=== PATIENT | female | born 1955 | race Two or more races ===

== ENCOUNTER 2017-11-14 20:37 | Emergency (ER) | payer OTHER ==
[~2017-11-14] VITALS: Ht 154.9 cm; Wt 61.2 kg
[~2017-11-14 20:37] MED LIST: ACTONEL35 MG
[2017-11-14] MEDS ORDERED: VENTOLIN HFA18 GM (20:49)
[2017-11-14] MEDS ORDERED: PREDNISONE5 MG/1 ML (20:50)
[2017-11-14] MEDS ORDERED: ZITHROMAX200 MG (20:51)
== END 2017-11-14 22:46 | disposition home or self-care (01) ==
LOC: ER 20:37
DX: J98.01 Acute bronchospasm (principal)

== ENCOUNTER 2017-11-19 13:03 | Outpatient (CLI) | payer OTHER ==
[~2017-11-19 13:03] MED LIST changes: +PREDNISONE5 MG/1 ML; +VENTOLIN HFA18 GM; +ZITHROMAX200 MG
== END 2017-11-19 14:13 | disposition home or self-care (01) ==
LOC: NUCLEAR 13:03
DX: R06.02 Shortness of breath (principal); R94.31 Abnormal electrocardiogram [ECG] [EKG]

== ENCOUNTER 2017-11-22 08:20 | Outpatient (CLI) | payer OTHER | END 2017-11-22 09:55 | disposition home or self-care (01) | LOC: LAB 08:20 | DX: R06.09 Other forms of dyspnea (principal); Z51.81 Encounter for therapeutic drug level monitoring ==

== ENCOUNTER → 2017-11-22 | Outpatient (CLI) | payer OTHER | END | disposition home or self-care (01) | LOC: TOM 09:15 | DX: R06.09 Other forms of dyspnea (principal) ==

== ENCOUNTER 2018-05-09 08:50 | Outpatient (CLI) | payer OTHER | END 2018-05-09 17:00 | disposition home or self-care (01) | LOC: MRI 08:50 | DX: M65.811 Other synovitis and tenosynovitis, right shoulder (principal); M75.101 Unspecified rotator cuff tear or rupture of right shoulder, not specified as traumatic | CPT/HCPCS: 73221 ==

== ENCOUNTER 2018-05-26 10:45 | Outpatient (CLI) | payer OTHER | END 2018-05-26 10:54 | disposition home or self-care (01) | LOC: RAD 10:45 | DX: M75.111 Incomplete rotator cuff tear or rupture of right shoulder, not specified as traumatic (principal) ==

== ENCOUNTER 2019-05-21 07:12 | Emergency (ER) | payer OTHER ==
[~2019-05-21] VITALS: Ht 154.9 cm; Wt 63.5 kg
== END 2019-05-21 11:07 | disposition home or self-care (01) ==
LOC: ER 07:12
DX: N20.0 Calculus of kidney (principal); N39.0 Urinary tract infection, site not specified

== ENCOUNTER 2019-05-22 08:21 | Inpatient (IN) | payer OTHER ==
[~2019-05-22] VITALS: Ht 154.9 cm; Wt 63.5 kg
== END 2019-05-31 13:25 | disposition home health service (06) | DRG 699 ==
LOC: ER 08:21 → SURG-SUITE 12:38 → MEDI 05-23 18:15
PROVIDERS: ADMIT Specialist
PROC: B03 Imaging, Central Nervous System, Magnetic Resonance Imaging (MRI) (ICD-10-PCS; principal; 2019-05-22)
PROC: B030Y0Z Magnetic Resonance Imaging (MRI) of Brain using Other Contrast, Unenhanced and Enhanced (ICD-10-PCS; 2019-05-22)
PROC: 0T9B70Z Drainage of Bladder with Drainage Device, Via Natural or Artificial Opening (ICD-10-PCS; 2019-05-22)
PROC: BW4GZZZ Ultrasonography of Pelvic Region (ICD-10-PCS; 2019-05-30)
DX: N31.8 Other neuromuscular dysfunction of bladder (principal); G37.3 Acute transverse myelitis in demyelinating disease of central nervous system; M51.05 Intervertebral disc disorders with myelopathy, thoracolumbar region; I67.82 Cerebral ischemia; N39.0 Urinary tract infection, site not specified; N39.41 Urge incontinence; J98.01 Acute bronchospasm; R27.8 Other lack of coordination; B96.0 Mycoplasma pneumoniae [M. pneumoniae] as the cause of diseases classified elsewhere; A60.04 Herpesviral vulvovaginitis; K59.09 Other constipation
CPT/HCPCS: 70551; 72157; 72158

== ENCOUNTER → 2020-04-10 | Outpatient (CLI) | payer OTHER | END | disposition home or self-care (01) | LOC: PPH VACUNA 02:16 | PROVIDERS: ATTEND Emergency Medicine Pediatric Emergency Medicine | DX: Z23 Encounter for immunization (principal) ==

== ENCOUNTER 2020-12-25 09:00 | Outpatient (CLI) | payer OTHER ==
[2021-01-14] MEDS ORDERED: TAMS0.4C PO (09:35)
[2021-01-14] MEDS ORDERED: PROBIOTIC1 EAC4 PO (09:35)
== END 2020-12-25 09:30 | disposition home or self-care (01) ==
LOC: PPH VACUNA 09:00
PROVIDERS: ATTEND Emergency Medicine Pediatric Emergency Medicine
DX: Z23 Encounter for immunization (principal)

== ENCOUNTER 2021-01-10 09:00 | Outpatient (CLI) | payer OTHER ==
[2021-01-14] MEDS ORDERED: PROBIOTIC1 EAC4 PO (09:35)
[2021-01-14] MEDS ORDERED: TAMS0.4C PO (09:35)
== END 2021-01-10 09:13 | disposition home or self-care (01) ==
LOC: TOM 09:00
PROVIDERS: ATTEND Internal Medicine Cardiovascular Disease
DX: K57.92 Diverticulitis of intestine, part unspecified, without perforation or abscess without bleeding (principal); R10.2 Pelvic and perineal pain

== ENCOUNTER → 2021-01-15 | Day surgery (SDC) | payer OTHER ==
[~2021-01-15] MED LIST changes: +PROBIOTIC1 EAC4 PO; +TAMS0.4C PO
== END | disposition home or self-care (01) ==
LOC: CIR.AMB 08:56
PROVIDERS: ATTEND Urology
DX: N20.1 Calculus of ureter (principal); Z20.822 Contact with and (suspected) exposure to COVID-19

== ENCOUNTER 2021-02-18 09:31 | Outpatient (CLI) | payer OTHER | END 2021-02-18 13:40 | disposition home or self-care (01) | LOC: SONOGRAMA 09:31 | PROVIDERS: ATTEND Urology | DX: N30.00 Acute cystitis without hematuria (principal); N20.1 Calculus of ureter ==

== ENCOUNTER 2021-09-08 11:12 | Outpatient (CLI) | payer OTHER | END 2021-09-08 11:22 | disposition home or self-care (01) | LOC: PPH VACUNA 11:12 | PROVIDERS: ATTEND Emergency Medicine Pediatric Emergency Medicine | DX: Z23 Encounter for immunization (principal) ==

== ENCOUNTER 2022-02-13 10:48 | Outpatient (CLI) | payer OTHER | END 2022-02-13 11:05 | disposition home or self-care (01) | LOC: PPH VACUNA 10:48 | PROVIDERS: ATTEND Emergency Medicine Pediatric Emergency Medicine | DX: Z23 Encounter for immunization (principal) ==

== ENCOUNTER 2023-07-08 08:55 | Emergency (ER) | payer OTHER ==
[~2023-07-08] VITALS: Ht 152.4 cm; Wt 62.1 kg
[2023-07-08] MEDS ORDERED: LEVALBUTEROL HCL 0.63 MG/3 ML SOLUTION IH SCH (09:00)
[2023-07-08] MEDS ORDERED: BUDESONIDE 0.25 MG/2 ML AMPUL.NEB IH ONE (09:15)
[2023-07-08] MEDS ORDERED: 0.9 % SODIUM CHLORIDE 1,000 ML IV SCH (09:15)
[2023-07-08] MEDS ORDERED: METHYLPREDNISOLONE SOD SUCC 125 MG VIAL IV ONE (09:15)
[2023-07-08 09:33] LABS: ABG PH 7.543 (7.35-7.45)
[2023-07-08 09:34] LABS: ABG PO2 97.2 mmHg (80-100); ABG pCO2 24.6 mmHg (35-45); BASE EXCESS 0 mmol/l; BICARBONATE 20.7 mmol/l (23-25); SaO2 98.4 %; Tco2 21.4 mmol/l; allen test SATISFACTORY; o2 21 %; puncture site RADIAL RIGHT
[2023-07-08 10:07] LABS: HEMATOCRIT 40.7 % (36.0-45.00); MEAN CELL VOLUME 87.9 fL (80.00-100.00); MEAN CORPUSCULAR HEMOGLOBIN 30.2 pg (27.00-32.0); MEAN CORPUSCULAR HGB CONC 34.4 g/dl (32.0-36.0); PLATELET COUNT 243 K/uL (150-450); RED BLOOD COUNT 4.63 M/uL (4.00-6.00); RED CELL DISTRIBUTION WIDTH 13.7 % (11.5-14.5)
[2023-07-08 10:25] LABS: ALBUMIN 3.6 gm/dL (3.4-5.0); BILIRUBIN TOTAL 0.54 mg/dL (0.3-1.2); CALCIUM 9.4 mg/dL (8.5-10.1); CREATININE SERUM 0.78 mg/dL (0.55-1.02); GFR 73.01; GLOBULINA 4.5 G/DL (2.4-3.5); POTASSIUM 4.34 mEq/L (3.5-5.1); TOTAL PROTEIN 8.1 gm/dL (6.4-8.2)
[2023-07-08] MEDS ORDERED: levoFLOXacin IN DEXTROSE 5 % 500MG/100ML PIGGYBAG IV ONE (15:45)
== END 2023-07-08 18:25 | disposition home or self-care (01) ==
LOC: ER 08:55
PROVIDERS: Emergency Medicine
DX: J45.909 Unspecified asthma, uncomplicated (principal); Z88.8 Allergy status to other drugs, medicaments and biological substances; J22 Unspecified acute lower respiratory infection; Z20.822 Contact with and (suspected) exposure to COVID-19; J18.9 Pneumonia, unspecified organism

== ENCOUNTER 2023-09-24 09:17 | Outpatient (CLI) | payer OTHER | END 2023-09-24 09:18 | disposition home or self-care (01) | LOC: NUCLEAR 09:17 | PROVIDERS: ATTEND Internal Medicine | DX: G45.9 Transient cerebral ischemic attack, unspecified (principal); I10 Essential (primary) hypertension ==

== ENCOUNTER 2023-09-24 10:55 | Outpatient (CLI) | payer OTHER | END 2023-09-24 11:02 | disposition home or self-care (01) | LOC: RAD 10:55 | PROVIDERS: ATTEND Internal Medicine Pulmonary Disease | DX: J45.41 Moderate persistent asthma with (acute) exacerbation (principal) ==

== ENCOUNTER 2023-09-27 09:04 | Inpatient (IN) | payer OTHER ==
[~2023-09-27] VITALS: Ht 162.6 cm; Wt 68.0 kg
--- NOTE | 2023-09-27 09:07 | NUR ---
PACIENTE TRAIDO EN SILLA DE [place] POR DEBILIDAD EN EXTREMIDADES INFERIORES DESDE HOY
[2023-09-27] MEDS ORDERED: METHYLPREDNISOLONE SOD SUCC 500 MG VIAL IV ONE (10:00)
[2023-09-27 10:37] LABS: HEMATOCRIT 37.5 % (36.0-45.00); MEAN CELL VOLUME 89.2 fL (80.00-100.00); MEAN CORPUSCULAR HEMOGLOBIN 30.9 pg (27.00-32.0); MEAN CORPUSCULAR HGB CONC 34.7 g/dl (32.0-36.0); PLATELET COUNT 248 K/uL (150-450); RED CELL DISTRIBUTION WIDTH 14.5 % (11.5-14.5)
[2023-09-27 10:51] LABS: ABG PH 7.621 (7.35-7.45); ABG PO2 130.8 mmHg (80-100); ABG pCO2 20.6 mmHg (35-45); BASE EXCESS 1.9 mmol/l; BICARBONATE 20.8 mmol/l (23-25); SaO2 99.5 %; Tco2 21.4 mmol/l
[2023-09-27 10:52] LABS: allen test SATISFACTORY; o2 21 %; puncture site RADIAL LEFT
[2023-09-27 10:58] LABS: ALBUMIN 3.5 gm/dL (3.4-5.0); BILIRUBIN TOTAL 0.61 mg/dL (0.3-1.2); CALCIUM 9.1 mg/dL (8.5-10.1); CREATININE SERUM 0.86 mg/dL (0.55-1.02); GFR 65.23; GLOBULINA 4.1 G/DL (2.4-3.5); POTASSIUM 3.12 mEq/L (3.5-5.1); TOTAL PROTEIN 7.6 gm/dL (6.4-8.2)
[2023-09-27 11:20] LABS: T4 TOTAL 8.37 UG/DL (4.8-13.9); TSH 4.25 uIU/mL (0.358-3.74)
[2023-09-27] MEDS ORDERED: DEXTROSE 50 % IN WATER 0.5 G/ML VIAL IV PRN (12:45)
[2023-09-27] MEDS ORDERED: INSULIN LISPRO 1,000 UNIT/10 ML UNITS SUBCUTANEO PRN (12:45)
[2023-09-27] MEDS ORDERED: POTASSIUM CHLORIDE IN WATER 100 ML IV STA (12:46)
[2023-09-27 13:15] LABS: INR 1.02; PARTIAL THROMBOPLASTIN TIME 27.7 SECONDS (22.0-34.0); PROTHROMBIN TIME 10.7 SECONDS (9.0-11.5)
[2023-09-27] MEDS ORDERED: PROVENTIL HFA6.7 GM (14:05)
[2023-09-27 20:12] LABS: T4 TOTAL 7.53 UG/DL (4.8-13.9)
[2023-09-27 20:20] LABS: C-REACTIVE PROTEIN 0.33 MG/DL (0.00-0.29); TSH 0.353 uIU/mL (0.358-3.74)
[2023-09-27] MEDS ORDERED: FAMOTIDINE/PF 20 MG in 0.9 % SODIUM CHLORIDE 100 ML IV SCH (21:00)
[2023-09-27 22:33] LABS: GLU CSF 103 mg/dl (41-70); PROT CSF 35 mg/dl (15-45)
[2023-09-27 22:51] LABS: CSF APPEARANCE CRYSTAL CLEAR; CSF COLOR COLOR LESS; CSF RBC 45 /mm3 (0-5.0); CSF WBC 3 /mm3 (0-5)
[2023-09-28] MEDS ORDERED: METHYLPREDNISOLONE SOD SUCC 500 MG VIAL IV SCH (09:00)
[2023-09-28 11:53] LABS: CALCIUM 9.4 mg/dL (8.5-10.1); CREATININE SERUM 0.62 mg/dL (0.55-1.02); GFR 95.16; POTASSIUM 4.28 mEq/L (3.5-5.1)
[2023-09-29] MEDS ORDERED: BARIUM SULFATE 450 ML ORAL.SUSP PO NR (07:45)
[2023-09-30] MEDS ORDERED: METHYLPREDNISOLONE SOD SUCC 500 MG VIAL IV STA (14:55)
[2023-10-01 08:08] LABS: hsv I pcr NEGATIVE
[2023-10-01] MEDS ORDERED: METHYLPREDNISOLONE SOD SUCC 500 MG VIAL IV SCH (13:00)
[2023-10-01 13:07] LABS: FOLIC ACID 14.19 ng/ml (4.78-20)
[2023-10-03 09:05] LABS: HOMOCYSTEINE 8.8 umol/L (0.0-17.2)
[2023-10-04 15:07] LABS: INTRINSIC FACTOR BLOCKING AB 1.1 AU/mL (0.0-1.1); PARIETAL CELL ANTIBODIES 3.5 Units (0.0-20.0)
[2023-10-05 13:07] LABS: ANTI CARDIO IGG < 9 GPL U/mL (0-14); ANTI CARDIO IGM < 9 MPL U/mL (0-12)
== END 2023-10-01 15:26 | disposition home or self-care (01) | DRG 58 ==
LOC: ER 09:04 → MEDI 10:10 → MEDJ 09-28 16:11
PROVIDERS: Anesthesiology Pain Medicine; Emergency Medicine; Psychiatry & Neurology Clinical Neurophysiology; ADMIT Specialist; ATTEND Specialist
PROC: BW38YZZ Magnetic Resonance Imaging (MRI) of Head using Other Contrast (ICD-10-PCS; 2023-09-27)
PROC: BW28YZZ Computerized Tomography (CT Scan) of Head using Other Contrast (ICD-10-PCS; 2023-09-27)
PROC: BR30YZZ Magnetic Resonance Imaging (MRI) of Cervical Spine using Other Contrast (ICD-10-PCS; 2023-09-27)
PROC: BR39ZZZ Magnetic Resonance Imaging (MRI) of Lumbar Spine (ICD-10-PCS; 2023-09-27)
PROC: BR30YZZ Magnetic Resonance Imaging (MRI) of Cervical Spine using Other Contrast (ICD-10-PCS; 2023-09-27)
PROC: 009Y3ZZ Drainage of Lumbar Spinal Cord, Percutaneous Approach (ICD-10-PCS; principal; 2023-09-27 20:30)
PROC: BW21YZZ Computerized Tomography (CT Scan) of Abdomen and Pelvis using Other Contrast (ICD-10-PCS; 2023-09-29)
DX: G35 Multiple sclerosis (principal); G04.81 Other encephalitis and encephalomyelitis; G61.0 Guillain-Barre syndrome; E09.65 Drug or chemical induced diabetes mellitus with hyperglycemia; T38.0X5A Adverse effect of glucocorticoids and synthetic analogues, initial encounter; Z79.4 Long term (current) use of insulin; J44.9 Chronic obstructive pulmonary disease, unspecified
CPT/HCPCS: 70545; 72141; 72157; 72158

== ENCOUNTER 2023-11-15 10:37 | Outpatient (CLI) | payer OTHER ==
[~2023-11-15 10:37] MED LIST changes: +PROVENTIL HFA6.7 GM
== END 2023-11-15 10:50 | disposition home or self-care (01) ==
LOC: MAMO-SONO 10:37
PROVIDERS: ATTEND General Practice
DX: N60.11 Diffuse cystic mastopathy of right breast (principal); N60.12 Diffuse cystic mastopathy of left breast; N64.0 Fissure and fistula of nipple; N63.0 Unspecified lump in unspecified breast

== ENCOUNTER 2024-01-18 08:27 | Outpatient (CLI) | payer OTHER | END 2024-01-18 08:28 | disposition home or self-care (01) | LOC: NUCLEAR 08:27 | PROVIDERS: ATTEND Internal Medicine Cardiovascular Disease | DX: I11.9 Hypertensive heart disease without heart failure (principal) ==

== ENCOUNTER 2024-06-12 08:26 | Outpatient (CLI) | payer OTHER | END 2024-06-12 08:30 | disposition home or self-care (01) | LOC: NUCLEAR 08:26 | PROVIDERS: ATTEND Internal Medicine Cardiovascular Disease | DX: I20.9 Angina pectoris, unspecified (principal) ==